=== PATIENT | female | born 1985 | race Caucasian/White ===

== ENCOUNTER 2017-08-10 12:28 | Emergency (ER) | payer BC, OTHER ==
[2017-08-10 12:35] VITALS: BP 112/66; PULSE 60; TEMP 97.7; BMI 24.1
--- NOTE | 2017-08-10 14:54 | PDOC ---
History of Present Illness - General Chief Complaint: Pain Stated Complaint: ABD PAIN (PCP SENT) Time Seen by Provider: 08/10/17 13:14 History Source: Patient Exam Limitations: No Limitations - History of Present Illness Travel History: No Initial Comments: 08/10/17 15:04 32-year-old female sent in by Dr. Viramontes [employer] for evaluation of left suprapubic pain that started this morning. Patient states had a pelvic exam and negative urine in the office and was sent here for further evaluation. Patient denies urinary complaints, fever, chills, vaginal discharge except for bleeding which she states started her menses yesterday. Patient denies passage of large clots, foul odor, bowel complaints, or abdominal distention. Patient states irregular menses since puberty and denies history of fibroids, endometriosis and cysts. Patient states pain is worsened with movement and did not take anything for the above discomfort. Timing/Duration: reports: intermittent Quality: reports: moderate, cramping Abdominal Pain Onset Location: reports: suprapubic (left) Pain Radiation: reports: flank, back Aggravating Factors: improves with: Movement Alleviating Factors: improves with: None Past History - Travel Traveled outside of the country in the last 30 days: No Close contact w/someone who was outside of country & ill: No - Past Medical History Allergies/Adverse Reactions: Allergies Allergy/AdvReac Type Severity Reaction Status Date / Time No Known Allergies Allergy Verified 08/10/17 12:35 Home Medications: Ambulatory Orders Clonazepam [Klonopin] 0.5 mg PO PRN 04/12/16 Escitalopram Oxalate [Lexapro -] 0.5 mg PO DAILY 04/12/16 COPD: No Psychiatric Problems: Yes (anxiety, depression) - Reproductive History Is Patient Now?: No - Suicide/Smoking/Psychosocial Hx Smoking History: Current every day smoker Have you smoked in the past 12 months: Yes Number of Cigarettes Smoked Daily: 5 Information on smoking cessation initiated: Yes 'Breaking Loose' booklet given: 08/10/17 Hx Alcohol Use: No Drug/Substance Use Hx: No Substance Use Type: None Patient Lives Alone: No Lives with/in: parents Review of Systems - Review of Systems Able to Perform ROS?: Yes Constitutional: No: Symptoms Reported HEENTM: No: Symptoms Reported Respiratory: No: Symptoms reported Cardiac (ROS): No: Symptoms Reported ABD/GI: Yes: Abdominal cramping : Yes: Discharge (vaginal bleeding since last night) Musculoskeletal: No: Symptoms Reported Integumentary: No: Symptoms Reported Neurological: No: Symptoms reported Endocrine: No: Symptoms Reported *Physical Exam - Vital Signs Last Vital Signs Temp Pulse Resp BP Pulse Ox 97.7 F 60 18 112/66 98 08/10/17 12:32 08/10/17 12:32 08/10/17 12:32 08/10/17 12:32 08/10/17 12:32 - Physical Exam General Appearance: Yes: Nourished, Appropriately Dressed. No: Apparent Distress HEENT: positive: EOMI. negative: Pale Conjunctivae Cardiovascular: positive: Regular Rhythm, Regular Rate. negative: Murmur Female Pelvic Exam: positive: other (deferred- patient had pelvic exam with Dr. Viramontes one hour prior) Gastrointestinal/Abdominal: positive: Soft, Tenderness (left suprapubic/mid suprapubic) Integumentary: positive: Normal Color, Warm, Moist Neurologic: positive: Motor Strength 5/5 (ambulatory) ED Treatment Course - LABORATORY CBC & Chemistry Diagram: 08/10/17 15:30 08/10/17 15:30 Medical Decision Making - Medical Decision Making 08/10/17 15:00 Patient here with complaints of left suprapubic pain since this morning associated with movement. Patient also states menses came 10 days earlier this month but states has had irregular menses since puberty. Patient exam has left suprapubic tenderness. Patient concerning for ovarian torsion versus cyst versus versus UTI. Patient ordered for urine and urine culture, CBC, comp Tylenol and ultrasound. 08/10/17 17:17 Laboratory Tests 08/10/17 08/10/17 15:30 15:30 WBC 7.2 Hgb 13.5 Hct 39.3 Plt Count 207 Sodium 142 Potassium 4.0 Chloride 107 Carbon Dioxide 24 Anion Gap 11 BUN 13 Creatinine 0.8 Random Glucose 98 Calcium 8.9 Total Bilirubin 0.9 AST 13 L ALT 15 Alkaline Phosphatase 50 Total Protein 7.3 Albumin 3.9 No ovarian cyst or torsion identified. Multiple intramural uterine soft tissue lesions probably representing Leiomyomas. The most prominent measuring 3 cm in diameter. Urine and serum pending. Patient states feeling better after receiving Tylenol. 08/10/17 17:40 Laboratory Tests 08/10/17 08/10/17 15:30 17:30 WBC 7.2 Serum , Qual Negative Case discussed with Dr. Viramontes and will discharge patient home to follow-up with him in the office. *DC/Admit/Observation/Transfer Diagnosis at time of Disposition: Fibroids, intramural - Discharge Dispostion Disposition: HOME Condition at time of disposition: Good - Referrals Referrals: Yesenia Chavez MD [Primary Care Provider] - Terrance Viramontes MD [Staff Physician] - - Patient Instructions Printed Discharge Instructions: DI for Uterine Fibroids Additional Instructions: At this time I recommend taking Tylenol for discomfort and apply heating pad to the lower abdomen for discomfort. Please follow up with Dr. Viramontes as needed. - Post Discharge Activity
[2017-08-10] MEDS ORDERED: ACETAMINOPHEN 500 MG TABLET (FP) PO ONE (14:55)
[2017-08-10] MEDS ORDERED: ACETAMINOPHEN 325 MG TABLET (FP) ONE (15:01)
[2017-08-10 16:21] LABS: BASO % 0.4 % (0-2.0); EOS % 0.8 % (0-4.5); HEMATOCRIT 39.3 % (32.4-45.2); HEMOGLOBIN 13.5 GM/dL (10.7-15.3); LYMPH % 32.8 % (8-40); MCH 32.2 pg (25.7-33.7); MCHC 34.4 g/dl (32.0-36.0); MEAN CELL VOLUME 93.6 fl (80-96); MEAN PLT VOLUME 8.7 fl (7.5-11.1); MONO % 5.5 % (3.8-10.2); NEUT % 60.5 % (42.8-82.8); PLATELET COUNT 207 K/MM3 (134-434); RDW 12.8 % (11.6-15.6); WHITE BLOOD COUNT 7.2 K/mm3 (4.0-10.0)
[2017-08-10 16:45] LABS: ALBUMIN 3.9 g/dl (3.4-5.0); ANION GAP 11 (8-16); BLOOD UREA NITROGEN 13 mg/dL (7-18); CALCIUM 8.9 mg/dL (8.5-10.1); CHLORIDE 107 mmol/L (98-107); CO2 24 mmol/L (21-32); CREATININE 0.8 mg/dL (0.55-1.02); GLUCOSE,RANDOM 98 mg/dL (74-106); SGOT/AST 13 U/L (15-37); SGPT/ALT 15 U/L (12-78); SODIUM 142 mmol/L (136-145)
[2017-08-10 16:47] LABS: ALK PHOS 50 U/L (45-117); BILIRUBIN,TOTAL 0.9 mg/dL (0.2-1.0); TOT PROT 7.3 g/dl (6.4-8.2)
[2017-08-10 22:53] LABS: URINE APPEARANCE SLCLOUDY; URINE BILIRUBIN NEGATIVE (NEGATIVE); URINE BLOOD 3+ (NEGATIVE); URINE COLOR YELLOW; URINE GLUCOSE (UA) NEGATIVE (NEGATIVE); URINE KETONE NEGATIVE (NEGATIVE); URINE LEUK ESTERASE TRACE (NEGATIVE); URINE NITRITE NEGATIVE (NEGATIVE); URINE UROBILINOGEN NEGATIVE mg/dL (0.2-1.0)
[2017-08-10 22:57] LABS: HCG,QUALITATIVE URINE NEGATIVE
[2017-08-10 22:58] LABS: URINE PROTEIN 1+ (NEGATIVE)
[2017-08-10 23:12] LABS: EPI CELLS RARE /HPF (FEW); URINE MUCUS MANY
== END 2017-08-10 18:01 | disposition home or self-care (01) ==
LOC: JER 12:28
DX: D25.1 Intramural leiomyoma of uterus (principal); N92.5 Other specified irregular menstruation; F41.8 Other specified anxiety disorders; F17.210 Nicotine dependence, cigarettes, uncomplicated
CPT/HCPCS: 36415; 76830-TC; 80053; 81003; 81015; 84703; 85025; 87086; 99282-25